=== PATIENT | male | born 1985 | race Hispanic/Latino ===

== ENCOUNTER → 2023-07-08 08:46 | Outpatient (REF) | payer OTHER, SELFPAY ==
[2023-07-08 09:58] LABS: Glycohemoglobin (HgbA1c) 5.7 % (4.0-5.6)
[2023-07-08 10:39] LABS: ALT (SGPT) 36 U/L (0-50); AST (SGOT) 29 U/L (17-59); Albumin 4.3 g/dl (3.5-5.0); Alkaline Phosphatase 72 U/L (38-126); Blood Urea Nitrogen 10 mg/dl (9-20); Calcium 9.6 mg/dl (8.4-10.2); Carbon Dioxide 25 mmol/L (22-30); Chloride 103 mmol/L (98-107); Glucose 113 mg/dl (70-99); Sodium 138 mmol/L (135-145); Total Bilirubin 2.2 mg/dl (0.2-1.3); Total Protein 7.2 g/dl (6.3-8.2); eGFR > 60.00
== END ==
LOC: CLINIC 08:46
PROVIDERS: ATTENDING PHYSICIAN Internal Medicine
DX: I10 Essential (primary) hypertension (principal)
CPT/HCPCS: 36415; 80053; 83036

== ENCOUNTER → 2023-12-15 07:08 | Outpatient (REF) | payer OTHER, SELFPAY ==
[2023-12-15 08:37] LABS: Glycohemoglobin (HgbA1c) 5.2 % (4.0-5.6)
[2023-12-15 09:02] LABS: Blood Urea Nitrogen 12 mg/dl (9-20); Calcium 9.8 mg/dl (8.4-10.2); Carbon Dioxide 26 mmol/L (22-30); Chloride 106 mmol/L (98-107); Glucose 106 mg/dl (70-99); HDL Cholesterol 38 mg/dl; LDL Cholesterol, Calculated 118 mg/dl; Potassium 4.1 mmol/L (3.5-5.1); Sodium 140 mmol/L (135-145); Total Cholesterol 170 mg/dl (50-199); Triglyceride 71 mg/dl (10-149); Very Low Density Lipoprotein 14 mg/dl (0-30); eGFR > 60.00
== END ==
LOC: REG 07:08
PROVIDERS: ATTENDING PHYSICIAN Nurse Practitioner Adult Health
DX: I10 Essential (primary) hypertension (principal); R73.03 Prediabetes; N52.9 Male erectile dysfunction, unspecified
CPT/HCPCS: 36415; 80048; 80061; 83036

== ENCOUNTER → 2024-12-19 07:42 | Outpatient (REF) | payer OTHER, SELFPAY ==
[2024-12-19 09:23] LABS: Hematocrit 41.3 % (39.0-52.0); Hemoglobin 14.7 g/dL (13.0-18.0); Mean Corp Hgb Conc. 35.6 g/dL (33.0-37.0); Mean Corpuscular Volume 92.8 fL (80.0-94.0); Platelet Count 177 10^3/uL (130-400); Red Cell Dist. Width 12.2 % (11.5-14.5)
[2024-12-19 10:32] LABS: ALT (SGPT) 37 U/L (0-50); AST (SGOT) 24 U/L (17-59); Albumin 4.6 g/dl (3.5-5.0); Alkaline Phosphatase 62 U/L (38-126); Blood Urea Nitrogen 11 mg/dl (9-20); Calcium 9.5 mg/dl (8.4-10.2); Carbon Dioxide 26 mmol/L (22-30); Chloride 106 mmol/L (98-107); Glucose 104 mg/dl (70-99); HDL Cholesterol 34 mg/dl; LDL Cholesterol, Calculated 108 mg/dl; Potassium 4.2 mmol/L (3.5-5.1); Sodium 139 mmol/L (135-145); Total Protein 7.3 g/dl (6.3-8.2); Very Low Density Lipoprotein 20 mg/dl (0-30); eGFR > 60.00
[2024-12-19 11:00] LABS: Glycohemoglobin (HgbA1c) 5.2 % (4.0-5.6)
== END ==
LOC: CLINIC 07:42
PROVIDERS: ATTENDING PHYSICIAN Nurse Practitioner Adult Health
DX: I10 Essential (primary) hypertension (principal); R73.03 Prediabetes; Z00.00 Encounter for general adult medical examination without abnormal findings
CPT/HCPCS: 36415; 80053; 80061; 83036; 85027